=== PATIENT | female | born 1955 | race Caucasian/White ===

== ENCOUNTER 2019-05-17 12:56 | Inpatient (IN) | payer MEDICARE, OTHER ==
[2019-05-17] MEDS ORDERED: SODIUM CHLORIDE 0.9% 500 ML 500 ML IV ONE (13:18)
--- NOTE | 2019-05-17 13:18 | ED ---
General Adult HPI - General Stated complaint: chest pain Time Seen by Provider: 05/17/19 12:58 Source: patient, family, RN notes reviewed, old records reviewed Mode of arrival: wheelchair Limitations: no limitations - History of Present Illness Initial comments: 63 -year-old female presenting for evaluation of chest pain. Patient was seen by her primary care physician this morning and sent to the emergency department for evaluation. She developed central chest pain radiating to the jaw which began at approximately 7 AM this morning. She presents at 1 PM to the emergency department. Symptoms have nearly completely resolved. She states they were associated with several episodes of vomiting as well as diaphoresis. No extremity pain. No known history of CAD. She is a nonsmoker. She states she did have 2 episodes of diarrhea. No fever or chills. - Related Data Allergies Allergy/AdvReac Type Severity Reaction Status Date / Time No Known Allergies Allergy Verified 05/17/19 14:38 Review of Systems ROS Statement: Those systems with pertinent positive or pertinent negative responses have been documented in the HPI. ROS Other: All systems not noted in ROS Statement are negative. Past Medical History Past Medical History: Pneumonia, Thyroid Disorder History of Any Multi-Drug Resistant Organisms: None Reported Past Surgical History: Back Surgery, Cholecystectomy Additional Past Surgical History / Comment(s): cataract Past Psychological History: No Psychological Hx Reported Smoking Status: Never smoker Past Alcohol Use History: None Reported Past Drug Use History: None Reported General Exam Limitations: no limitations General appearance: alert, in no apparent distress Head exam: Present: atraumatic, normocephalic Eye exam: Present: normal appearance, PERRL ENT exam: Present: mucous membranes dry Neck exam: Present: normal inspection. Absent: tenderness, meningismus Respiratory exam: Present: normal lung sounds bilaterally. Absent: respiratory distress, wheezes Cardiovascular Exam: Present: regular rate, normal rhythm GI/Abdominal exam: Present: soft. Absent: distended, tenderness, guarding, rebound Extremities exam: Present: normal inspection, normal capillary refill, other (1+ bilateral radial pulses, symmetric). Absent: pedal edema Back exam: Present: normal inspection Neurological exam: Present: alert, oriented X3, CN II-XII intact. Absent: motor sensory deficit Psychiatric exam: Present: normal affect, normal mood Skin exam: Present: warm, dry, intact. Absent: cyanosis, diaphoretic Course Vital Signs 05/17/19 05/17/19 05/17/19 13:05 13:15 14:38 Temperature 97.9 F 97.6 F Pulse Rate 65 65 62 Respiratory 18 18 16 Rate Blood Pressure 94/60 96/67 95/76 O2 Sat by Pulse 96 95 96 Oximetry EKG Findings - EKG Comments: EKG Findings:: EKG: Normal sinus rhythm, inferior infarct with Q waves, T-wave inversion in lead 3, no ST segment elevation, rate of 63, NJ interval 136, QRS duration 74, QTC 399, Q waves present in EKG from the primary care office. Medical Decision Making - Medical Decision Making 63-year-old female presenting with an episode of chest pain radiating to her neck associated nausea vomiting diaphoresis this episode began at 7 AM. Pain nearly completely resolved upon arrival to the emergency department. Patient's EKG is sinus rhythm with no ST segment elevation. She has a chest x-ray which is negative for acute cardiac primary disease. She has a normal CBC, normal CMP, initial troponin is 0.065. This lab abnormality is discussed with both cardiology and the admitting physician. Cardiology is Dr. Cadena, regarding the patient's presentation and very mild persistent pain. Case discussed with the admitting physician Dr. Knight. Dr. Cadena, is able to evaluate the patient emergency department. - Lab Data Result diagrams: 05/17/19 13:07 05/17/19 13:07 Lab Results 05/17/19 05/17/19 05/17/19 Range/Units 13:07 13:07 13:07 WBC 9.8 (3.8-10.6) k/uL RBC 5.30 (3.80-5.40) m/uL Hgb 14.9 (11.4-16.0) gm/dL Hct 47.0 H (34.0-46.0) % MCV 88.8 (80.0-100.0) fL MCH 28.1 (25.0-35.0) pg MCHC 31.7 (31.0-37.0) g/dL RDW 13.6 (11.5-15.5) % Plt Count 233 (150-450) k/uL Neutrophils % 67 % Lymphocytes % 21 % Monocytes % 6 % Eosinophils % 3 % Basophils % 2 % Neutrophils # 6.5 (1.3-7.7) k/uL Lymphocytes # 2.1 (1.0-4.8) k/uL Monocytes # 0.6 (0-1.0) k/uL Eosinophils # 0.3 (0-0.7) k/uL Basophils # 0.2 (0-0.2) k/uL PT 9.7 (9.0-12.0) sec INR 0.9 (<1.2) APTT 23.2 (22.0-30.0) sec Sodium 141 (137-145) mmol/L Potassium 4.3 (3.5-5.1) mmol/L Chloride 108 H (98-107) mmol/L Carbon Dioxide 24 (22-30) mmol/L Anion Gap 9 mmol/L BUN 15 (7-17) mg/dL Creatinine 0.80 (0.52-1.04) mg/dL Est GFR (CKD-EPI)AfAm >90 (>60 ml/min/1.73 sqM) Est GFR (CKD-EPI)NonAf 79 (>60 ml/min/1.73 sqM) Glucose 92 (74-99) mg/dL Calcium 9.7 (8.4-10.2) mg/dL Magnesium 2.1 (1.6-2.3) mg/dL Total Bilirubin 0.5 (0.2-1.3) mg/dL AST 37 H (14-36) U/L ALT 31 (4-34) U/L Alkaline Phosphatase 64 (38-126) U/L Troponin I (0.000-0.034) ng/mL Total Protein 7.1 (6.3-8.2) g/dL Albumin 4.1 (3.5-5.0) g/dL 05/17/19 Range/Units 13:07 WBC (3.8-10.6) k/uL RBC (3.80-5.40) m/uL Hgb (11.4-16.0) gm/dL Hct (34.0-46.0) % MCV (80.0-100.0) fL MCH (25.0-35.0) pg MCHC (31.0-37.0) g/dL RDW (11.5-15.5) % Plt Count (150-450) k/uL Neutrophils % % Lymphocytes % % Monocytes % % Eosinophils % % Basophils % % Neutrophils # (1.3-7.7) k/uL Lymphocytes # (1.0-4.8) k/uL Monocytes # (0-1.0) k/uL Eosinophils # (0-0.7) k/uL Basophils # (0-0.2) k/uL PT (9.0-12.0) sec INR (<1.2) APTT (22.0-30.0) sec Sodium (137-145) mmol/L Potassium (3.5-5.1) mmol/L Chloride (98-107) mmol/L Carbon Dioxide (22-30) mmol/L Anion Gap mmol/L BUN (7-17) mg/dL Creatinine (0.52-1.04) mg/dL Est GFR (CKD-EPI)AfAm (>60 ml/min/1.73 sqM) Est GFR (CKD-EPI)NonAf (>60 ml/min/1.73 sqM) Glucose (74-99) mg/dL Calcium (8.4-10.2) mg/dL Magnesium (1.6-2.3) mg/dL Total Bilirubin (0.2-1.3) mg/dL AST (14-36) U/L ALT (4-34) U/L Alkaline Phosphatase (38-126) U/L Troponin I 0.065 H* (0.000-0.034) ng/mL Total Protein (6.3-8.2) g/dL Albumin (3.5-5.0) g/dL Critical Care Time Critical Care Time: Yes Total Critical Care Time: 35 Disposition Clinical Impression: Acute non-ST elevation myocardial infarction (NSTEMI) Disposition: ADMITTED IP TO THIS [facility] Condition: Serious Is patient prescribed a controlled substance at d/c from ED?: No Referrals: Idris Dahl MD [Primary Care Provider] - 1-2 days Decision to Admit Reason: Admit from EC Decision Date: 05/17/19 Decision Time: 14:42
[2019-05-17 13:23] LABS: Basophils # (A) 0.2 k/uL (0-0.2); Basophils % (A) 2 %; Eosinophils # (A) 0.3 k/uL (0-0.7); Eosinophils % (A) 3 %; HGB 14.9 gm/dL (11.4-16.0); Lymphocytes # (A) 2.1 k/uL (1.0-4.8); Lymphocytes % (A) 21 %; MCH 28.1 pg (25.0-35.0); MCHC 31.7 g/dL (31.0-37.0); MCV 88.8 fL (80.0-100.0); Mean Platelet Volume 8.7; Monocytes # (A) 0.6 k/uL (0-1.0); Monocytes % (A) 6 %; Neutrophils # (A) 6.5 k/uL (1.3-7.7); Neutrophils % (A) 67 %; Platelet Count 233 k/uL (150-450); RDW 13.6 % (11.5-15.5); WBC 9.8 k/uL (3.8-10.6)
--- NOTE | 2019-05-17 13:27 | XR ---
EXAMINATION TYPE: XR chest 1V portable DATE OF EXAM: 05/17/2019 COMPARISON: NONE HISTORY: Chest pain into neck. TECHNIQUE: Single AP portable frontal upright view of the chest is obtained. FINDINGS: There is some chronic parenchymal changes bilaterally without suspicious focal air space o pacity, pleural effusion, or pneumothorax seen. The cardiac silhouette size is enlarged. Overlying EKG leads are seen. The osseous structures are intact. IMPRESSION: Chronic changes and cardiomegaly without acute pulmonary process.
[2019-05-17 13:33] LABS: INR 0.9 (<1.2); Partial Thromboplastin Time 23.2 sec (22.0-30.0); Prothrombin Time 9.7 sec (9.0-12.0)
[2019-05-17 13:36] LABS: ALT 31 U/L (4-34); AST 37 U/L (14-36); African American GFR (CKD) >90 (>60 ml/min/1.73 sqM); Albumin 4.1 g/dL (3.5-5.0); Alkaline Phosphatase 64 U/L (38-126); Anion Gap 9 mmol/L; Blood Urea Nitrogen 15 mg/dL (7-17); Calcium 9.7 mg/dL (8.4-10.2); Carbon Dioxide 24 mmol/L (22-30); Chloride 108 mmol/L (98-107); Glucose 92 mg/dL (74-99); Magnesium 2.1 mg/dL (1.6-2.3); Non-African American GFR(CKD) 79 (>60 ml/min/1.73 sqM); Potassium 4.3 mmol/L (3.5-5.1); Sodium 141 mmol/L (137-145); Total Bilirubin 0.5 mg/dL (0.2-1.3); Total Protein 7.1 g/dL (6.3-8.2)
[2019-05-17] MEDS ORDERED: HEPARIN SODIUM,PORCINE 5,000 UNIT/ML 1 ML VIAL IV PRN (14:21)
[2019-05-17] MEDS ORDERED: HEPARIN SODIUM,PORCINE 5,000 UNIT/ML 1 ML VIAL IV ONE (14:21)
[2019-05-17] MEDS ORDERED: ATORVASTATIN 80 MG TAB PO STA (14:22)
[2019-05-17] MEDS ORDERED: SODIUM CHLORIDE 0.9% 1,000 ML IV SCH (14:30)
[2019-05-17] MEDS ORDERED: ASPIRIN 325 MG TAB PO STA (14:35)
[2019-05-17] MEDS ORDERED: NITROGLYCERIN SL TABS 0.4 MG TAB SUBLINGUAL PRN (14:35)
[2019-05-17] MEDS: HEPARIN SOD,PORK IN 0.45% NACL 25,000 UNIT in 0.45% NACL 1 250ML.BAG IV SCH (14:57)
[2019-05-17] MEDS ORDERED: SODIUM CHLORIDE 0.9% 1,000 ML IV ONE (15:50)
[2019-05-17] MEDS ORDERED: fentaNYL (PF) 50 MCG/ML 2 ML AMP ONE (15:53)
[2019-05-17] MEDS ORDERED: fentaNYL (PF) 50 MCG/ML 2 ML AMP IV ONE (15:56)
[2019-05-17] MEDS ORDERED: LIDOCAINE 1% INJ 10MG/ML (20 ML MDV) ONE (15:58)
[2019-05-17] MEDS ORDERED: MIDAZOLAM 2 MG/2 ML VIAL IV ONE (15:58)
[2019-05-17] MEDS ORDERED: LIDOCAINE 1% INJ 10MG/ML (20 ML MDV) SQ ONE (15:59)
[2019-05-17] MEDS ORDERED: VERAPAMIL 2.5 MG/ML 2 ML AMP ONE (15:59)
[2019-05-17] MEDS ORDERED: HEPARIN SODIUM 1,000 UN/ML (10ML VL) ONE (16:00)
[2019-05-17] MEDS ORDERED: VERAPAMIL SYRINGE (5 MG/10 ML) INTRAARTER ONE (16:09)
[2019-05-17] MEDS ORDERED: IOPAMIDOL-370 50ML BTL INJ ONE (16:33)
[2019-05-17] MEDS ORDERED: IOPAMIDOL-370 125ML BTL INJ ONE (16:33)
[2019-05-17] MEDS ORDERED: RX INFO: IV CONTRAST WAS GIVEN 1 EACH MISC MISCELLANE PRN (16:39)
--- NOTE | 2019-05-17 16:46 | P.CARDCATH ---
Date of Procedure: 05/17/19 Preoperative Diagnosis: Chest pain, abnormal troponin and EKG Procedure(s) Performed: Normal coronary arteries and normal LV function Description of Procedure: HISTORY: This is a 63-year-old female with family history of ischemic heart disease who was referred by family physician to the ER because of abnormal EKG showing evidence of anterior and inferior wall myocardial infarction and jaw pain. Her first troponin was abnormal. Patient was having chest pain and jaw pain. She was given the option of having serial troponins and echo or having a cardiac catheterization for definitive diagnosis. Patient and . Preferred to have cardiac catheterization for diagnosis. CONSENT:I have discussed the risks, benefits and alternative therapies for the above-mentioned procedure and for both sedation/analgesia as well as necessary blood product administration, if indicated, as they pertain to this patient. The patient has indicated understanding and acceptance of the risks and procedures discussed. [] PROCEDURE: Patient was brought to the lab in a fasting state. Patient was given some IV sedation. The right wrist is infiltrated with lidocaine and right radial artery was entered using Seldinger technique. A 6-Khmer catheter was left in place and selective coronary arteriography was performed. Patient tolerated the procedure well. TR band was applied for hemostasis. No immediate complications were noted and patient was transferred to [facility] in a stable condition Conscious Sedation: Versed 1mg Fentanyl 50 g Duration 33minutes HEMODYNAMICS: The aortic pressure is about 95/60. Left ventricular end- diastolic pressure is 5-10. There was no gradient across the aortic valve SELECTIVE CORONARY ARTERIOGRAPHY: LEFT MAIN: Normal length and free of any occlusive disease THE LEFT ANTERIOR DESCENDING CORONARY ARTERY:. This is a good caliber vessel giving rise to good-sized first diagonal branch and septal branches. The LAD and its branches are free of occlusive disease. There maybe mild myocardial bridging of the mid LAD THE LEFT CIRCUMFLEX AND IS CORONARY ARTERY: This is a dominant vessel giving rise to PDA. The circumflex and is coronary artery also gives a 2 OM branch. The circumflex was coronary artery and branches are free of occlusive disease THE RIGHT CORONARY ARTERY:. This is a fair caliber vessel but nondominant. Free of any significant occlusive disease LEFT VENTRICULOGRAPHY:. This revealed normal-sized cardiac silhouette with preserved LV function with an ejection fraction of 5055% FINAL IMPRESSION:. Normal coronary arteries. 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
[2019-05-17] MEDS: SODIUM CHLORIDE 0.9% 1,000 ML IV SCH (17:36)
[2019-05-17] MEDS ORDERED: HYDROcodone/APAP 5-325MG 1 EACH TAB PO PRN (18:12)
[2019-05-17] MEDS: METOPROLOL TARTRATE 25 MG TAB PO SCH (20:17)
[2019-05-17 20:28] VITALS: RESP 16
[2019-05-18] MEDS: SODIUM CHLORIDE 0.9% 1,000 ML IV SCH ×2 (06:29→07:25)
[2019-05-18 06:30] LABS: Basophils % (A) 0 %; Eosinophils # (A) 0.2 k/uL (0-0.7); Eosinophils % (A) 2 %; HCT 41.4 % (34.0-46.0); HGB 12.8 gm/dL (11.4-16.0); Lymphocytes # (A) 1.9 k/uL (1.0-4.8); Lymphocytes % (A) 26 %; MCHC 30.9 g/dL (31.0-37.0); MCV 90.9 fL (80.0-100.0); Mean Platelet Volume 8.7; Monocytes # (A) 0.5 k/uL (0-1.0); Monocytes % (A) 7 %; Neutrophils # (A) 4.4 k/uL (1.3-7.7); Neutrophils % (A) 62 %; Platelet Count 183 k/uL (150-450); RBC 4.55 m/uL (3.80-5.40); RDW 13.8 % (11.5-15.5); WBC 7.2 k/uL (3.8-10.6)
[2019-05-18 06:52] LABS: Cholesterol 142 mg/dL (<200); HDL Cholesterol 47 mg/dL (40-60); LDL Cholesterol,Calculated 80 mg/dL (0-99); Triglycerides 75 mg/dL (<150)
[2019-05-18] MEDS: HEPARIN SOD,PORK IN 0.45% NACL 25,000 UNIT in 0.45% NACL 1 250ML.BAG IV SCH (07:25)
[2019-05-18] MEDS: METOPROLOL TARTRATE 25 MG TAB PO SCH (08:05)
[2019-05-18 08:09] VITALS: PULSE 59
[2019-05-18] MEDS ORDERED: ASPIRIN 325 MG TAB PO SCH (09:00)
[2019-05-18 11:20] VITALS: BP 111/64; TEMP 98.3
--- NOTE | 2019-05-18 13:49 | P.PN ---
Subjective Progress Note Date: 05/18/19 This 63-year-old female was admitted to the emergency room with chest pain and abnormal troponins. Had a cardiac catheterization yesterday which showed normal findings without any obstructive disease of significance. Patient remained stable. Her radial puncture site seemed to be soft without any hematoma. Radial pulses bounding. Heart is regular. Lungs are clear. Patient is being discharged home. Follow-up in the office in one week Objective - Vital Signs Vital signs: Vital Signs Temp 98.3 F 05/18/19 10:50 Pulse 59 L 05/18/19 10:50 Resp 16 05/18/19 10:50 BP 111/64 05/18/19 10:50 Pulse Ox 98 05/18/19 11:24 Intake & Output 05/17/19 05/18/19 05/18/19 18:59 06:59 18:59 Intake Total 290 231.833 420 Output Total 551 Balance 290 231.833 -131 Weight 88.451 kg 92.3 kg Intake: IV 50 Intake, IV Titration 51.833 Amount Heparin Sod,Pork in 0.45% 51.833 NaCl 25,000 unit In 0.45 % NaCl 1 250ml.bag @ 11. 306 UNITS/KG/HR 10 mls/hr IV .Q24H TERESA Rx#: [id number] Oral 240 180 420 Output: Urine 550 Stool 1 Other: Voiding Method Toilet # Voids 1 1 - Labs CBC & Chem 7: 05/18/19 05:43 05/17/19 13:07 Labs: Abnormal Lab Results - Last 24 Hours (Table) 05/17/19 05/17/19 05/18/19 Range/Units 13:07 19:47 01:31 MCHC (31.0-37.0) g/dL Troponin I 0.065 H* 0.086 H* 0.068 H* (0.000-0.034) ng/mL 05/18/19 Range/Units 05:43 MCHC 30.9 L (31.0-37.0) g/dL Troponin I (0.000-0.034) ng/mL Assessment and Plan (1) Atypical angina Status: Acute Code(s): I20.8 - OTHER FORMS OF ANGINA PECTORIS SNOMED Code(s): 551675804 (2) Elevated troponin Status: Acute Code(s): R79.89 - OTHER SPECIFIED ABNORMAL FINDINGS OF BLOOD CHEMISTRY SNOMED Code(s): 820114211 Plan: Patient had a normal cath ,being discharged home in stable status. Continue current medical therapy
--- NOTE | 2019-05-18 15:35 | P.HPIM ---
History of Present Illness H&P Date: 05/18/19 Chief Complaint: Chest discomfort This will serve both an H&P and discharge summary This is a 63-year-old pleasant lady patient of Dr. Dahl with known history of osteoporosis, and hypothyroidism, admitted to the emergency room secondary to chest discomfort and jaw discomfort. She was seen by Dr. Marte in the office, when she started having vomiting and diarrhea 2 days,, and thereafter started having any jaw pain, patient was palpitating at that time, from the emesis, any diarrhea, deep chest pressure persisted, from 7 AM until the lesion at the office. They have recommended her to be seen at the emergency room, no nitroglycerin or aspirin was given on the interim, no prior cardiac event in the past, and no prior stress test in the past. Emergency room, troponins are mildly elevated at 0.06, she was ruled in for an end STEMI, requiring evaluation to a cardiac cath, EKG shows sinus rhythm with Q waves V1, V3 poor R-wave progression V4 V5 V6 she was seen by Dr. Mccarthy for an emergent cardiac cath. 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 risk modification was recommended by cardiology, patient was ruled out for myocardial infarction, no aspirin no try nitroglycerin was recommended for discharge, repeat EKG was performed in the hospital prior to discharge, no hematoma in the right radial puncture site, blood pressures are okay, on discharge, we discussed possibly Prinzmetal angina secondary to her significant illness with her palpitations, and her myocardial bridging, this will be closely monitored by cardiology no nitroglycerin was decided for discharge, no aspirin was decided for discharge per discussion with cardiology Review of Systems Constitutional: Reports as per HPI, Denies anorexia (1), Denies chills, Denies chronic headaches, Denies chronic pain, Denies daytime sleepiness, Denies fatigue, Denies fever, Denies lethargy, Denies malaise, Denies night sweats, Denies poor appetite, Denies sweats, Denies weakness, Denies weight gain, Denies weight loss Ears, nose, mouth and throat: Reports as per HPI, Denies ant. neck pain, Denies bleeding gums, Denies dental pain, Denies dysphagia, Denies epistaxis, Denies headache, Denies hoarseness, Denies mouth pain, Denies nasal congestion, Denies nasal discharge, Denies neck fullness/pressure, Denies neck lump, Denies nose pain, Denies odynophagia, Denies post-nasal drip, Denies sinus pain, Denies sinus pressure, Denies swelling in mouth, Denies swelling in throat, Denies sore throat, Denies vertigo, Denies voice changes Cardiovascular: Reports as per HPI, Reports chest pain, Denies claudication, Den ies decreased exercise tolerance, Denies dyspnea on exertion, Denies edema, Denies high blood pressure, Denies irregular heart beat, Denies leg edema, Denies lightheadedness, Denies orthopnea, Denies palpitations, Denies paroxysmal nocturnal dyspnea, Denies phlebitis, Denies rapid heart beat, Denies shortness of breath, Denies syncope Gastrointestinal: Reports as per HPI Genitourinary: Reports as per HPI Menstruation: Reports as per HPI, Denies amenorrhea, Denies amenorrhea on BC, Denies currently menstrual, Denies cycle < 21 days, Denies cycle > 35 days, Denies cycle variable, Denies menses 1-7 days, Denies menses 8 or > days, Denies menses variable, Denies period heavy, Denies period light, Denies period normal, Denies period spotting, Denies post hysterectomy, Denies postmenopausal, Denies premenarcheal Musculoskeletal: Reports as per HPI, Denies arm numbness/tingling, Denies atrophy, Denies fractures, Denies frequent falls, Denies gait dysfunction, Denies hot joints, Denies leg numbness/tingling, Denies limitation of motion, Denies loss of height, Denies low back pain, Denies morning stiffness, Denies muscle cramps, Denies muscle weakness, Denies myalgias, Denies neck pain, Denies neck stiffness, Denies prior amputations, Denies redness of joints, Denies shooting arm pain, Denies shooting leg pain Integumentary: Reports as per HPI, Denies acne, Denies boils, Denies brittle nails, Denies change in hair/nails, Denies color changes, Denies darkening of skin, Denies depigmentation, Denies dryness, Denies foot/leg ulcers, Denies growths, Denies hirsutism, Denies lesions, Denies onychomycosis, Denies pruritus, Denies rash, Denies sores, Denies striae, Denies unusual bruising, Denies wounds Neurological: Reports as per HPI, Denies aphasia, Denies ataxia, Denies balance difficulties, Denies burning pain, Denies change in mentation, Denies change in smell/taste, Denies change in speech, Denies confusion, Denies convulsions, Denies double vision, Denies gait dysfunction, Denies head injury, Denies headaches, Denies hearing difficulties, Denies lack of coordination, Denies loss of vision, Denies memory loss, Denies migraines, Denies motor disturbance, Denies numbness, Denies paralysis, Denies paresthesias, Denies seizures, Denies sensory deficit, Denies spasticity, Denies syncope, Denies tic, Denies tingling, Denies transient paralysis, Denies tremors, Denies vertigo, Denies weakness, Denies visual changes Psychiatric: Reports as per HPI Endocrine: Reports as per HPI, Denies cold intolerance, Denies deepening of the voice, Denies excessive sweating, Denies excessive thirst, Denies fatigue, Denies flushing, Denies heat intolerance, Denies high blood sugars, Denies increase in ring/shoe/hat size, Denies low blood sugars, Denies nocturia, Denies palpitations, Denies polydipsia, Denies polyphagia, Denies polyuria, Denies proptosis, Denies recent glucocorticoid use, Denies thyroid mass, Denies weight change Hematologic/Lymphatic: Reports as per HPI Allergic/Immunologic: Reports as per HPI, Denies allergic rhinitis, Denies anaphylaxis, Denies angioedema, Denies gluten intolerance, Denies persistent infections, Denies seasonal allergies, Denies urticaria, Denies wheezing Past Medical History Past Medical History: Pneumonia, Thyroid Disorder History of Any Multi-Drug Resistant Organisms: None Reported Past Surgical History: Back Surgery, Cholecystectomy Additional Past Surgical History / Comment(s): cataract Past Psychological History: No Psychological Hx Reported Smoking Status: Never smoker Past Alcohol Use History: None Reported Past Drug Use History: None Reported Medications and Allergies Home Medications Medication Instructions Recorded Confirmed Type Albuterol Sulfate [Proair Hfa] 1 - 2 puff INHALATION RT-Q6H PRN 05/17/19 05/17/19 History Cholecalciferol (Vitamin D3) 2,000 unit PO DAILY 05/17/19 05/17/19 History [Vitamin D3] Coral Calcium Liquid 1 dose PO DAILY 05/17/19 05/17/19 History FLUoxetine HCL [PROzac] 20 mg PO DAILY 05/17/19 05/17/19 History Ketorolac 0.5% Ophth Soln [Acular 1 drops RIGHT EYE QID 05/17/19 05/17/19 History 0.5%] Levothyroxine Sodium [Synthroid] 112 mcg PO DAILY 05/17/19 05/17/19 History Methocarbamol [Robaxin] 500 mg PO BID PRN 05/17/19 05/17/19 History Ofloxacin 0.3% Ophth Soln [Ocuflox 1 drops RIGHT EYE BID 05/17/19 05/17/19 History Ophth Soln] Raloxifene [Evista] 60 mg PO DAILY 05/17/19 05/17/19 History prednisoLONE ACETATE 1% OPHTH 1 drops RIGHT EYE QID 05/17/19 05/17/19 History [Pred Forte 1%] traZODone HCL 50 mg PO HS 05/17/19 05/17/19 History Allergies Allergy/AdvReac Type Severity Reaction Status Date / Time No Known Allergies Allergy Verified 05/17/19 14:38 Physical Exam Vitals: Vital Signs Temp Pulse Pulse Resp BP BP Pulse Ox 05/18/19 08:07 97.8 F 59 L 16 118/66 98 05/18/19 03:48 51 L 16 105/70 94 L 05/18/19 00:00 57 L 16 106/59 96 05/17/19 20:00 98 F 16 98/57 95 05/17/19 18:24 14 97/75 05/17/19 17:54 14 103/71 05/17/19 17:24 14 96/71 05/17/19 17:09 14 94/68 05/17/19 16:15 14 97 05/17/19 16:00 12 97 05/17/19 15:31 97.8 F 61 16 102/64 98 05/17/19 14:38 97.6 F 62 16 95/76 96 05/17/19 13:15 65 18 96/67 95 05/17/19 13:05 97.9 F 65 18 94/60 96 Intake and Output 05/17/19 05/18/19 05/18/19 22:59 06:59 14:59 Intake Total 521.833 120 Output Total 1 Balance 521.833 119 Intake: IV 50 Intake, IV Titration 51.833 Amount Heparin Sod,Pork in 0.45% 51.833 NaCl 25,000 unit In 0.45 % NaCl 1 250ml.bag @ 11. 306 UNITS/KG/HR 10 mls/hr IV .Q24H TERESA Rx#: [id number] Oral 420 120 Output: Stool 1 Other: Voiding Method Toilet # Voids 1 Weight 88.451 kg 92.3 kg - Constitutional General appearance: cooperative, no acute distress - EENT Eyes: anicteric sclerae, EOMI, PERRLA, normal appearance ENT: NA/AT, normal oropharynx - Neck Neck: normal ROM - Respiratory Respiratory: bilateral: CTA, negative: diminished, dullness, rales, rhonchi, prolonged expiration, prolonged inspiration - Cardiovascular Rhythm: regular Heart sounds: normal: S1, S2 Abnormal Heart Sounds: no systolic murmur, no diastolic murmur, no rub, no S3 Gallop, no S4 Gallop, no click, no other - Gastrointestinal General gastrointestinal: normal bowel sounds, soft - Integumentary Integumentary: decreased turgor, normal - Neurologic Neurologic: CNII-XII intact - Musculoskeletal Musculoskeletal: gait normal, strength equal bilaterally - Psychiatric Psychiatric: A&O x's 3, appropriate affect, intact judgment & insight Results CBC & Chem 7: 05/18/19 05:43 05/17/19 13:07 Labs: Abnormal Lab Results - Last 24 Hours (Table) 05/17/19 05/17/19 05/17/19 Range/Units 13:07 13:07 13:07 Hct 47.0 H (34.0-46.0) % MCHC (31.0-37.0) g/dL Chloride 108 H (98-107) mmol/L AST 37 H (14-36) U/L Troponin I 0.065 H* (0.000-0.034) ng/mL 05/17/19 05/18/1905/18/19 Range/Units 19:47 01:31 05:43 Hct (34.0-46.0) % MCHC 30.9 L (31.0-37.0) g/dL Chloride (98-107) mmol/L AST (14-36) U/L Troponin I 0.086 H* 0.068 H* (0.000-0.034) ng/mL Laboratory Results WBC 7.2 k/uL (3.8-10.6) 05/18/19 05:43 RBC 4.55 m/uL (3.80-5.40) 05/18/19 05:43 Hgb 12.8 gm/dL (11.4-16.0) 05/18/19 05:43 Hct 41.4 % (34.0-46.0) 05/18/19 05:43 MCV 90.9 fL (80.0-100.0) 05/18/19 05:43 MCH 28.0 pg (25.0-35.0) 05/18/19 05:43 MCHC 30.9 g/dL (31.0-37.0) L 05/18/19 05:43 RDW 13.8 % (11.5-15.5) 05/18/19 05:43 Plt Count 183 k/uL (150-450) 05/18/19 05:43 Neutrophils % 62 % 05/18/19 05:43 Lymphocytes % 26 % 05/18/19 05:43 Monocytes % 7 % 05/18/19 05:43 Eosinophils % 2 % 05/18/19 05:43 Basophils % 0 % 05/18/19 05:43 Neutrophils # 4.4 k/uL (1.3-7.7) 05/18/19 05:43 Lymphocytes # 1.9 k/uL (1.0-4.8) 05/18/19 05:43 Monocytes # 0.5 k/uL (0-1.0) 05/18/19 05:43 Eosinophils # 0.2 k/uL (0-0.7) 05/18/19 05:43 Basophils # 0.0 k/uL (0-0.2) 05/18/19 05:43 PT 9.7 sec (9.0-12.0) 05/17/19 13:07 INR 0.9 (<1.2) 05/17/19 13:07 APTT 23.2 sec (22.0-30.0) 05/17/19 13:07 Sodium 141 mmol/L (137-145) 05/17/19 13:07 Potassium 4.3 mmol/L (3.5-5.1) 05/17/19 13:07 Chloride 108 mmol/L (98-107) H 05/17/19 13:07 Carbon Dioxide 24 mmol/L (22-30) 05/17/19 13:07 Anion Gap 9 mmol/L 05/17/19 13:07 BUN 15 mg/dL (7-17) 05/17/19 13:07 Creatinine 0.80 mg/dL (0.52-1.04) 05/17/19 13:07 Est GFR (CKD-EPI)AfAm >90 (>60 ml/min/1.73 sqM) 05/17/19 13:07 Est GFR (CKD-EPI)NonAf 79 (>60 ml/min/1.73 sqM) 05/17/19 13:07 Glucose 92 mg/dL (74-99) 05/17/19 13:07 Calcium 9.7 mg/dL (8.4-10.2) 05/17/19 13:07 Magnesium 2.1 mg/dL (1.6-2.3) 05/17/19 13:07 Total Bilirubin 0.5 mg/dL (0.2-1.3) 05/17/19 13:07 AST 37 U/L (14-36) H 05/17/19 13:07 ALT 31 U/L (4-34) 05/17/19 13:07 Alkaline Phosphatase 64 U/L (38-126) 05/17/19 13:07 Troponin I 0.068 ng/mL (0.000-0.034) H* 05/18/19 01:31 Total Protein 7.1 g/dL (6.3-8.2) 05/17/19 13:07 Albumin 4.1 g/dL (3.5-5.0) 05/17/19 13:07 Triglycerides 75 mg/dL (<150) 05/18/19 05:43 Cholesterol 142 mg/dL (<200) 05/18/19 05:43 LDL Cholesterol, Calc 80 mg/dL (0-99) 05/18/19 05:43 HDL Cholesterol 47 mg/dL (40-60) 05/18/19 05:43 Thrombosis Risk Factor Assmnt - Choose All That Apply Each Factor Represents 1 point: Obesity (BMI >25) Each Risk Factor Represents 2 Points: Age 61-74 years Other congenital or acquired thrombophilia - If yes, enter type in comment: No Thrombosis Risk Factor Assessment Total Risk Factor Score: 3 Thrombosis Risk Factor Assessment Level: Moderate Risk Assessment and Plan Plan: 1. Elevated troponin, with jaw pain, along with atypical angina is suspected, cannot rule out Prinzmetal angina, ruled out related to perfusion mismatch during her acute illness with nausea and vomiting, cardiac cath is unremarkable except for right cardial bridging 2. Ruled out myocardial infarction or an nSTEMI 3. 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 Nausea pyrosis or disorder of bone density, on Evista 60 mg daily 6 Viral gastroenteritis present prior to admission which has resolved on discharge Discharge Medication List Albuterol Sulfate [Proair Hfa] 1 - 2 puff INHALATION RT-Q6H PRN 05/17/19 [History] Cholecalciferol (Vitamin D3) [Vitamin D3] 2,000 unit PO DAILY 05/17/19 [History] Coral Calcium Liquid 1 dose PO DAILY 05/17/19 [History] FLUoxetine HCL [PROzac] 20 mg PO DAILY 05/17/19 [History] Ketorolac 0.5% Ophth Soln [Acular 0.5%] 1 drops RIGHT EYE QID 05/17/19 [History] Levothyroxine Sodium [Synthroid] 112 mcg PO DAILY 05/17/19 [History] Methocarbamol [Robaxin] 500 mg PO BID PRN 05/17/19 [History] Ofloxacin 0.3% Ophth Soln [Ocuflox Ophth Soln] 1 drops RIGHT EYE BID 05/17/19 [History] Raloxifene [Evista] 60 mg PO DAILY 05/17/19 [History] prednisoLONE ACETATE 1% OPHTH [Pred Forte 1%] 1 drops RIGHT EYE QID 05/17/19 [History] traZODone HCL 50 mg PO HS 05/17/19 [History]
== END 2019-05-18 11:35 | disposition home or self-care (01) | DRG 287 ==
LOC: EC 12:56 → 3SCARD 14:35
PROVIDERS: ADMIT Family Medicine; ATTEND Family Medicine
PROC: B2151ZZ Fluoroscopy of Left Heart using Low Osmolar Contrast (ICD-10-PCS; principal; 2019-05-17 16:00)
PROC: B2111ZZ Fluoroscopy of Multiple Coronary Arteries using Low Osmolar Contrast (ICD-10-PCS; principal; 2019-05-17 16:00)
PROC: 4A023N7 Measurement of Cardiac Sampling and Pressure, Left Heart, Percutaneous Approach (ICD-10-PCS; principal; 2019-05-17 16:00)
DX: I20.9 Angina pectoris, unspecified (principal); E03.9 Hypothyroidism, unspecified; M81.0 Age-related osteoporosis without current pathological fracture; M89.9 Disorder of bone, unspecified; Z79.890 Hormone replacement therapy; Z79.899 Other long term (current) drug therapy; A08.4 Viral intestinal infection, unspecified; Z82.49 Family history of ischemic heart disease and other diseases of the circulatory system
CPT/HCPCS: 36415; 71045; 80053; 80061; 83735; 84484; 85025; 85610; 85730; 93005; 93458; 96365; 96376; 99291